=== PATIENT | male | born 1930 | race Caucasian/White ===

== ENCOUNTER 2016-03-22 10:57 | Inpatient (IN) | payer OTHER ==
[2016-03-22] VITALS (8 sets, daily range): BP systolic 42–130; BP diastolic 30–75
[~2016-03-22] VITALS: Ht 188 cm; Wt 107.0 kg
[~2016-03-22 10:57] MED LIST: BENZONATATE200 MG PO; CALCITRIOL0.25 MCG PO; CALCIUM CARB1 TABLET PO; CALCIUM600 M1 PO; CALTRATE 600600 MG PO; DAILY VALUE1 EACH PO; ENDOCET 5-3251 EACH PO; ENULOSE10 GM/15 M PO; FERROUS SULFAT325 MG PO; FLORINEF ACETA0.1 MG PO; FLUDROCORTISON0.1 M1 PO; FOSAMAX70 MG PO; FUROSEMIDE20 MG PO; IRON325 M1 PO; LASIX20 MG PO; LEVAQUIN750 MG PO; LO-DOSE ASPIRIN81 M1 PO; LO-DOSE ASPIRIN81 M2 PO; LOPRESSOR50 MG PO; LOSARTAN POTASS25 MG PO; MAGNESIUM27 MG PO; MELOXICAM7.5 MG PO; METOPROLOL SUCC25 MG PO; METOPROLOL SUCC50 MG PO; METOPROLOL TART25 MG PO; NORCO 5/3251 TABLET PO; OMEPRAZOLE20 MG PO; PLAVIX75 MG PO; PREDNISONE10 MG PO; SIMVASTATIN40 MG PO; TYLENOL WITH C1 EACH PO
[2016-03-22 11:20] LABS: BASE EXCESS -6.6 mEq/L (-3 to +3); BICARBONATE 19.1 mEq/L (22-26); CARBOXY HGB 2.2 % (0-5); METHEMOGLOBIN 0.7 % (0-1.5); PCO2 38 mm Hg (35-45); PO2 287 mm Hg (80-100); pH 7.31 (7.35-7.45)
[2016-03-22 11:20] LABS: EOSINOPHIL (%) 0.9 % (0-5); EOSINOPHIL COUNT 0.1 K/uL (0-0.3); HEMATOCRIT 36.8 % (38.0-50.0); IMMATURE GRANULOCYTE (%) 0.8 % (0.0-0.7); IMMATURE GRANULOCYTE COUNT 0.6 K/uL; LYMPHOCYTE COUNT 3.4 K/uL (1.0-2.8); MCH 30.4 PG (29.0-34.0); MCHC 32.3 G/DL (30.0-36.0); MCV 93.9 FL (86-99); MEAN PLAT.VOLUME 9.9 uM^3 (9.0-12.4); MONOCYTE (%) 4.7 % (3-12); MONOCYTE COUNT 0.4 K/uL (0-0.8); NEUTROPHIL (%) 48.7 % (45-76); NEUTROPHIL COUNT 3.6 K/uL (1.8-6.4); PLATELET COUNT 98 K/uL (156-360); RBC DIS.WIDTH-CV 15.7 % (11.8-14.6); RBC DIS.WIDTH-SD 51.9 % (39-53); RED BLOOD COUNT 3.92 M/uL (4.00-5.50)
[2016-03-22 11:22] LABS: CHLORIDE 98 mEq/L (99-109); POTASSIUM 3.7 mEq/L (3.7-5.4); SODIUM 130 mEq/L (136-147); WHITE BLOOD COUNT 7.5 K/uL (4.1-10.2)
[2016-03-22 11:22] LABS: COMMENTS - BLOOD GASES A+C+; DEVICE 840 PB; FI02 100 %; MECHANICAL RATE 18 resp/min; MODE AC; PEEP 5 CM/H20; SITE LR; TIDAL VOLUME 550 ML; TOTAL RESP RATE 18 resp/min
[2016-03-22 11:24] LABS: GLUCOSE 218 mg/dL (70-99)
[2016-03-22 11:25] LABS: ANION GAP 16 MEQ/L (2-14)
[2016-03-22 11:26] LABS: INTER. NORMALIZED RATIO 1.2; PROTHROMBIN TIME 12.7 (9.2-11.2); PTT 26.6 (25-32); TOTAL BILIRUBIN 1.2 mg/dL (0.0-1.0)
[2016-03-22 11:27] LABS: ALKALINE PHOSPHATASE 47 IU/L (3-129)
[2016-03-22 11:28] LABS: GFR ESTIMATE (CALCULATED) 56 mL/min/
[2016-03-22 11:29] LABS: UREA NITROGEN (BUN) 20 mg/dL (9-23)
[2016-03-22 11:34] LABS: TROP-I INTERPRETATION NEGATIVE; TROPONIN-I 0.14 ng/mL (0.0-0.30)
[2016-03-22] MEDS ORDERED: POTASSIUM CHLO20 ME2 PO (13:40)
[2016-03-22] MEDS ORDERED: MIDODRINE HCL5 MG PO (13:40)
[2016-03-22] MEDS ORDERED: MULTI-VITAMIN1 EAC4 PO (13:41)
[2016-03-22] MEDS ORDERED: CALCIUM600 M1 PO (13:41)
[2016-03-22] MEDS ORDERED: IRON325 M1 PO (13:42)
[2016-03-22] MEDS ORDERED: LACTULOSE10 GM/151 PO (13:43)
[2016-03-22] MEDS ORDERED: ACETAMINOPHEN-1 EAC1 PO (13:43)
[2016-03-22 15:55] LABS: BASE EXCESS -7.2 mEq/L (-3 to +3); BICARBONATE 18.8 mEq/L (22-26); CARBOXY HGB 1.4 % (0-5); METHEMOGLOBIN 0.6 % (0-1.5); PCO2 39 mm Hg (35-45); PO2 106 mm Hg (80-100)
[2016-03-22 15:56] LABS: DEVICE VENT; FI02 60 %; MECHANICAL RATE 20 resp/min; MODE AC; PEEP 5 CM/H20; SITE ALINE; TIDAL VOLUME 500 ML; TOTAL RESP RATE 20 resp/min; pH 7.29 (7.35-7.45)
[2016-03-22 16:02] LABS: METH RESISTANT S AUREUS PCR NEGATIVE (NEGATIVE)
[2016-03-22 16:13] LABS: PROBE CHECK PASS; SPECIMEN PROCESSING CONTROL PASS
== END 2016-03-22 19:00 | DRG 296 ==
LOC: EME → EDBD 10:57 → EDOF 13:22 → 4WEST 13:22
PROVIDERS: Emergency Medicine; Internal Medicine Pulmonary Disease
PROC: 5A1935Z Respiratory Ventilation, Less than 24 Consecutive Hours (ICD-10-PCS; principal; 2016-03-22)
PROC: 05HN33Z Insertion of Infusion Device into Left Internal Jugular Vein, Percutaneous Approach (ICD-10-PCS; principal; 2016-03-22)
PROC: 0T7C8ZZ Dilation of Bladder Neck, Via Natural or Artificial Opening Endoscopic (ICD-10-PCS; principal; 2016-03-22)
PROC: 5A12012 Performance of Cardiac Output, Single, Manual (ICD-10-PCS; principal; 2016-03-22)
PROC: 0T9B70Z Drainage of Bladder with Drainage Device, Via Natural or Artificial Opening (ICD-10-PCS; principal; 2016-03-22)
PROC: 04HK33Z Insertion of Infusion Device into Right Femoral Artery, Percutaneous Approach (ICD-10-PCS; principal; 2016-03-22)
DX: I46.9 Cardiac arrest, cause unspecified (principal); J96.00 Acute respiratory failure, unspecified whether with hypoxia or hypercapnia; G93.1 Anoxic brain damage, not elsewhere classified; E87.1 Hypo-osmolality and hyponatremia; I47.2 Ventricular tachycardia; I25.10 Atherosclerotic heart disease of native coronary artery without angina pectoris; Z95.5 Presence of coronary angioplasty implant and graft; Z95.1 Presence of aortocoronary bypass graft; I10 Essential (primary) hypertension; E78.5 Hyperlipidemia, unspecified; K21.9 Gastro-esophageal reflux disease without esophagitis; N32.0 Bladder-neck obstruction
CPT/HCPCS: 36600; 70450; 71010; 72125; 80048 91; 80053; 81003; 82803; 83605; 83735; 84100; 84484; 85025; 85025 91; 85610; 85730; 87040; 87070; 87205; 87641; 93005; 94002; 99281; 99285; C1769; J2250; J2704; J7030